=== PATIENT | male | born 1960 | race Caucasian/White ===

== ENCOUNTER 2016-10-28 05:49 | Emergency (ER) | payer MEDICARE ==
[~2016-10-28] VITALS: Ht 180.3 cm; Wt 91.0 kg
[~2016-10-28 05:49] MED LIST: GABA300C10 PO; IBUP800T PO; MIRT15TA PO; OMEP-110 PO; QUET25TA5 PO
[2016-10-28] MEDS ORDERED: METH40TA3 PO (06:01)
[2016-10-28] MEDS ORDERED: TRAZ100T15 PO (06:01)
[2016-10-28 06:43] LABS: ASPARTATE AMINO TRANSFERASE 31 U/L (15-37); BLOOD UREA NITROGEN 13 mg/dL (7-18)
[2016-10-28] MEDS ORDERED: LISI-167 PO (06:45)
[2016-10-28] MEDS ORDERED: KETOROLAC 30 MG/1 ML IM ONE (08:00)
[2016-10-28] MEDS ORDERED: KETOROLAC 30 MG/1 ML ONE (08:00)
[2016-10-28 09:20] VITALS: BP 153/88
== END 2016-10-28 09:25 | disposition home or self-care (01) ==
LOC: ED 06:10
DX: N13.2 Hydronephrosis with renal and ureteral calculous obstruction (principal); Z79.891 Long term (current) use of opiate analgesic; I10 Essential (primary) hypertension; E78.00 Pure hypercholesterolemia, unspecified; F31.9 Bipolar disorder, unspecified; F17.200 Nicotine dependence, unspecified, uncomplicated; F15.10 Other stimulant abuse, uncomplicated
CPT/HCPCS: 36415; 51702; 74176; 80053; 81001; 85025; 93005; 96372; 99285; J1885

== ENCOUNTER 2016-11-17 23:26 | Emergency (ER) | payer MEDICARE ==
[~2016-11-17] VITALS: Ht 180.3 cm; Wt 89.4 kg
[~2016-11-17 23:26] MED LIST changes: +LISI-167 PO; +METH40TA3 PO; +TRAZ100T15 PO
[2016-11-18] MEDS ORDERED: KETOROLAC 30 MG/1 ML ONE (01:59)
[2016-11-18] MEDS ORDERED: KETOROLAC 30 MG/1 ML IM ONE (02:00)
[2016-11-18] MEDS ORDERED: ALUMINUM/MAG/SIMETHICONE 30 ML UDC PO ONE (02:00)
[2016-11-18 02:44] VITALS: BP 110/52
== END 2016-11-18 02:49 | disposition home or self-care (01) ==
LOC: ED 23:59
DX: R07.89 Other chest pain (principal); I10 Essential (primary) hypertension
CPT/HCPCS: 36415; 71010; 80047; 84484; 93005; 96372; 99285; J1885

== ENCOUNTER 2017-04-02 23:45 | Inpatient (IN) | payer MEDICARE ==
[~2017-04-02] VITALS: Ht 180.3 cm; Wt 83.4 kg
[~2017-04-02 23:45] MED LIST changes: +IBUP-1223 PO; -IBUP800T PO
[2017-04-03] MEDS ORDERED: AMPICILLIN/SULBACTAM 3 GM in SODIUM CHLORIDE 0.9% 100 ML IV ONE (01:00)
[2017-04-03 01:12] LABS: HEMATOCRIT 38.6 % (39.2-51.8); HEMOGLOBIN 13.1 g/dL (13.7-18.0); WHITE BLOOD COUNT 4.6 x10^3/uL (3.4-10)
[2017-04-03 01:19] LABS: BLOOD UREA NITROGEN 7 mg/dL (7-18)
[2017-04-03] MEDS ORDERED: POTASSIUM CHLORIDE 20 MEQ TAB.ER.PRT PO ONE ×2 (01:30→11:30)
[2017-04-03] MEDS ORDERED: ONDANSETRON 2MG/ML, 2ML IVPush PRN (01:30)
[2017-04-03] MEDS ORDERED: hydrALAzine 20 MG/ML, 1ML IVPush PRN (01:30)
[2017-04-03] MEDS ORDERED: ACETAMINOPHEN 325 MG TABLET PO PRN (01:30)
[2017-04-03] MEDS ORDERED: VANCOMYCIN PER PHARMACY MC PRN (01:30)
[2017-04-03] MEDS: AMPICILLIN/SULBACTAM 3 GM in SODIUM CHLORIDE 0.9% 100 ML IV SCH ×4 (01:30→22:26)
[2017-04-03] MEDS ORDERED: TEMAZEPAM 15 MG CAPSULE PO PRN (01:30)
[2017-04-03 02:39] VITALS: BP 135/67
[2017-04-03] MEDS ORDERED: PHARMACOKINETIC MONITORING MC PRN (03:00)
[2017-04-03] MEDS ORDERED: VANCOMYCIN 1,600 MG in SODIUM CHLORIDE 0.9% 250 ML IV SCH (03:00)
[2017-04-03] MEDS ORDERED: PHARMACOKINETIC CONSULTATION MC ONE (03:00)
[2017-04-03] MEDS: ENOXAPARIN 40 MG/0.4 ML SQ SCH (03:01)
[2017-04-03 03:16] VITALS: BP 135/67
[2017-04-03] MEDS: VANCOMYCIN 1,600 MG in SODIUM CHLORIDE 0.9% 250 ML IV SCH ×2 (05:00→17:10)
[2017-04-03 07:56] VITALS: BP 143/70
[2017-04-03 14:30] VITALS: BP 159/85
[2017-04-03 19:45] VITALS: BP 155/84
[2017-04-03] MEDS ORDERED: IBUPROFEN 800 MG TABLET PO SCH (23:00)
[2017-04-03] MEDS: TRAZODONE 100MG TABLET PO SCH (23:00)
[2017-04-03] MEDS ORDERED: IBUPROFEN MC SCH (23:30)
[2017-04-04] MEDS ORDERED: METHADONE 10 MG TABLET PO SCH ×2 (01:30→09:00)
[2017-04-04] MEDS ORDERED: METHADONE 5 MG TABLET PO SCH ×2 (01:30→09:00)
[2017-04-04] MEDS ORDERED: METHADONE 5 MG TABLET PO ONE (01:30)
[2017-04-04] MEDS ORDERED: METHADONE 10 MG TABLET PO ONE (01:30)
[2017-04-04] MEDS ORDERED: METHADONE 40 MG TABLET.SOL PO ONE (01:30)
[2017-04-04] MEDS ORDERED: METHADONE 10 MG TABLET ONE (01:42)
[2017-04-04 01:51] VITALS: BP 155/80
[2017-04-04] MEDS: GABAPENTIN 300 MG CAPSULE PO SCH ×3 (02:27→22:01)
[2017-04-04] MEDS: ENOXAPARIN 40 MG/0.4 ML SQ SCH (02:28)
[2017-04-04 05:06] LABS: HEMATOCRIT 40.3 % (39.2-51.8); HEMOGLOBIN 13.8 g/dL (13.7-18.0); WHITE BLOOD COUNT 4.7 x10^3/uL (3.4-10)
[2017-04-04 05:20] LABS: BLOOD UREA NITROGEN 9 mg/dL (7-18)
[2017-04-04] MEDS: VANCOMYCIN 1,600 MG in SODIUM CHLORIDE 0.9% 250 ML IV SCH ×2 (05:35→17:33)
[2017-04-04 07:25] VITALS: BP 146/79
[2017-04-04] MEDS: AMPICILLIN/SULBACTAM 3 GM in SODIUM CHLORIDE 0.9% 100 ML IV SCH ×3 (07:29→20:12)
[2017-04-04] MEDS ORDERED: METHADONE 40 MG TABLET.SOL PO SCH (09:00)
[2017-04-04] MEDS: LISINOPRIL 20 MG TABLET PO SCH (09:19)
[2017-04-04] MEDS: QUETIAPINE 25MG TABLET PO SCH (09:20)
[2017-04-04] MEDS: OMEPRAZOLE 20 MG CAPSULE.DR PO SCH (09:20)
[2017-04-04 13:05] VITALS: BP 157/81
[2017-04-04 19:40] VITALS: BP 136/74
[2017-04-04] MEDS: TRAZODONE 100MG TABLET PO SCH (21:00)
[2017-04-05] MEDS: ENOXAPARIN 40 MG/0.4 ML SQ SCH (00:46)
[2017-04-05] MEDS: AMPICILLIN/SULBACTAM 3 GM in SODIUM CHLORIDE 0.9% 100 ML IV SCH ×4 (02:22→18:04)
[2017-04-05 02:36] VITALS: BP 110/57
[2017-04-05] MEDS: VANCOMYCIN 1,600 MG in SODIUM CHLORIDE 0.9% 250 ML IV SCH ×2 (07:31→19:13)
[2017-04-05 07:53] VITALS: BP 142/65
[2017-04-05] MEDS: METHADONE 10 MG TABLET PO SCH (09:39)
[2017-04-05] MEDS: LISINOPRIL 20 MG TABLET PO SCH (09:41)
[2017-04-05] MEDS: QUETIAPINE 25MG TABLET PO SCH ×2 (09:41→21:23)
[2017-04-05] MEDS: OMEPRAZOLE 20 MG CAPSULE.DR PO SCH (09:41)
[2017-04-05] MEDS: GABAPENTIN 300 MG CAPSULE PO SCH ×2 (09:42→21:23)
[2017-04-05 14:55] VITALS: BP 115/69
[2017-04-05 20:14] VITALS: BP 142/73
[2017-04-05] MEDS: TRAZODONE 100MG TABLET PO SCH (21:00)
[2017-04-06] MEDS: AMPICILLIN/SULBACTAM 3 GM in SODIUM CHLORIDE 0.9% 100 ML IV SCH ×4 (00:38→18:27)
[2017-04-06] MEDS: ENOXAPARIN 40 MG/0.4 ML SQ SCH (00:38)
[2017-04-06] MEDS: IBUPROFEN 200 MG TABLET PO PRN (01:10)
[2017-04-06 03:14] VITALS: BP 137/71
[2017-04-06] MEDS: VANCOMYCIN 1,600 MG in SODIUM CHLORIDE 0.9% 250 ML IV SCH ×2 (06:36→19:54)
[2017-04-06 07:45] VITALS: BP 127/68
[2017-04-06] MEDS: METHADONE 10 MG TABLET PO SCH (08:58)
[2017-04-06] MEDS: OMEPRAZOLE 20 MG CAPSULE.DR PO SCH (08:59)
[2017-04-06] MEDS: LISINOPRIL 20 MG TABLET PO SCH (08:59)
[2017-04-06] MEDS: GABAPENTIN 300 MG CAPSULE PO SCH ×2 (08:59→19:58)
[2017-04-06 13:50] VITALS: BP 119/72
[2017-04-06] MEDS: QUETIAPINE 25MG TABLET PO SCH (19:57)
[2017-04-06] MEDS: TRAZODONE 100MG TABLET PO SCH (19:58)
[2017-04-06 20:05] VITALS: BP 136/72
[2017-04-07] MEDS: AMPICILLIN/SULBACTAM 3 GM in SODIUM CHLORIDE 0.9% 100 ML IV SCH ×5 (00:25→23:36)
[2017-04-07] MEDS: IBUPROFEN 200 MG TABLET PO PRN (00:25)
[2017-04-07] MEDS: ENOXAPARIN 40 MG/0.4 ML SQ SCH ×2 (00:30→23:38)
[2017-04-07 03:00] VITALS: BP 134/70
[2017-04-07] MEDS: VANCOMYCIN 1,600 MG in SODIUM CHLORIDE 0.9% 250 ML IV SCH ×2 (08:00→20:57)
[2017-04-07] MEDS: GABAPENTIN 300 MG CAPSULE PO SCH ×2 (09:21→20:57)
[2017-04-07] MEDS: METHADONE 10 MG TABLET PO SCH (09:21)
[2017-04-07] MEDS: LISINOPRIL 20 MG TABLET PO SCH (09:21)
[2017-04-07] MEDS: OMEPRAZOLE 20 MG CAPSULE.DR PO SCH (09:21)
[2017-04-07 10:40] VITALS: BP 140/75
[2017-04-07] MEDS ORDERED: VANC1VIA3 IV (11:55)
[2017-04-07] MEDS ORDERED: AMPI3VIA IV (11:55)
[2017-04-07 15:59] VITALS: BP 135/69
[2017-04-07] MEDS: QUETIAPINE 25MG TABLET PO SCH (20:58)
[2017-04-07] MEDS: TRAZODONE 100MG TABLET PO SCH (20:59)
[2017-04-07 22:11] VITALS: BP 115/63
[2017-04-08 00:58] VITALS: BP 129/77
[2017-04-08] MEDS: AMPICILLIN/SULBACTAM 3 GM in SODIUM CHLORIDE 0.9% 100 ML IV SCH (05:58)
[2017-04-08 07:19] VITALS: BP 123/63
[2017-04-08] MEDS: VANCOMYCIN 1,600 MG in SODIUM CHLORIDE 0.9% 250 ML IV SCH (08:00)
[2017-04-08] MEDS: GABAPENTIN 300 MG CAPSULE PO SCH (10:00)
[2017-04-08] MEDS: LISINOPRIL 20 MG TABLET PO SCH (10:00)
[2017-04-08] MEDS: OMEPRAZOLE 20 MG CAPSULE.DR PO SCH (10:00)
[2017-04-08] MEDS: METHADONE 10 MG TABLET PO SCH (10:00)
[2017-04-08 10:03] VITALS: BP 137/80
== END 2017-04-08 10:14 | DRG 539 ==
LOC: ED 04-03 00:53 → EDIP 04-03 00:58 → SUATTDRO 04-03 01:13 → 4NOR 04-03 02:15
PROVIDERS: ADMIT Internal Medicine; ATTEND Internal Medicine
PROC: 02HV33Z Insertion of Infusion Device into Superior Vena Cava, Percutaneous Approach (ICD-10-PCS; principal; 2017-04-07)
PROC: B5181ZA Fluoroscopy of Superior Vena Cava using Low Osmolar Contrast, Guidance (ICD-10-PCS; 2017-04-07)
DX: M86.142 Other acute osteomyelitis, left hand (principal); E43 Unspecified severe protein-calorie malnutrition; L03.114 Cellulitis of left upper limb; E87.1 Hypo-osmolality and hyponatremia; E83.51 Hypocalcemia; E87.6 Hypokalemia; F17.210 Nicotine dependence, cigarettes, uncomplicated; F31.9 Bipolar disorder, unspecified; G89.29 Other chronic pain; I10 Essential (primary) hypertension; L03.012 Cellulitis of left finger; Z68.25 Body mass index [BMI] 25.0-25.9, adult; Z59.0 Homelessness; Z87.442 Personal history of urinary calculi
CPT/HCPCS: 36415; 36569; 76937; 77001; 80048; 80202; 82040; 83735; 84100; 85025; 99285; J0295; J1650; J3370; C1751; J7050

== ENCOUNTER 2018-02-16 19:34 | Emergency (ER) | payer MEDICARE ==
[~2018-02-16 19:34] MED LIST changes: +AMPI3VIA IV; +VANC1VIA3 IV
[2018-02-16] MEDS ORDERED: SULFAMETH./TRIMETHOPRIM DS 800MG/160MG TABLET PO ONE (20:00)
[2018-02-16] MEDS ORDERED: CEPHALEXIN 500 MG CAPSULE PO SCH (20:00)
[2018-02-16] MEDS ORDERED: SULFAMETH./TRIMETHOPRIM DS 800MG/160MG TABLET ONE (20:41)
[2018-02-16] MEDS ORDERED: CEPHALEXIN 500 MG CAPSULE ONE (20:42)
[2018-02-16 22:32] VITALS: BP 118/64
== END 2018-02-16 22:34 | disposition home or self-care (01) ==
LOC: ED 22:30
DX: L02.511 Cutaneous abscess of right hand (principal); L03.011 Cellulitis of right finger; I10 Essential (primary) hypertension; E78.00 Pure hypercholesterolemia, unspecified; Z88.8 Allergy status to other drugs, medicaments and biological substances
CPT/HCPCS: 11740; 99283

== ENCOUNTER 2020-07-31 18:42 | Emergency (ER) | payer MEDICARE, OTHER ==
[~2020-07-31] VITALS: Ht 180.3 cm; Wt 110.3 kg
[~2020-07-31 18:42] MED LIST changes: +MIRT-37 PO; -MIRT15TA PO; +TRAZ-175 PO; -TRAZ100T15 PO
--- NOTE | 2020-07-31 19:18 | NUR ---
ERP WAS IN TO SEE PT. POC RV'WD. SAME TRIAGE NOTE. SWELLING TO BILAT HANDS, LOWER LEGS, AND FEET. PT REPORTS HE HAS BEEN DRINKING A COUPLE PINTS A DAY, SMOKING A PACK A DAY, AND STILL USING HEROIN OCCASIONALLY.
[2020-07-31 19:48] LABS: ALBUMIN 3.2 g/dL (3.4-5.0); ANION GAP 3 mmol/L (5-15); CALCIUM 8.2 mg/dL (8.5-10.1); CHLORIDE 105 mmol/L (98-107)
[2020-07-31 19:54] LABS: ALANINE AMINOTRANSFERASE 71 U/L (12-78); ALKALINE PHOSPHATASE 78 U/L (45-117); BILIRUBIN,TOTAL 0.4 mg/dL (0.2-1.0); CREATININE 0.88 mg/dL (0.7-1.3); TROPONIN I < 0.015 ng/mL (0.000-0.045)
[2020-07-31 20:46] LABS: BASOPHILS % (AUTO) 0 % (0-1); EOSINOPHILS % (AUTO) 2 % (1-7); LYMPHOCYTES % (AUTO) 17 % (22-44); MEAN CORPUSCULAR HEMOGLOBIN 30.2 pg (27.5-34.5); MEAN CORPUSCULAR HGB CONC 34.7 g/dL (33.2-36.2); MEAN PLATELET VOLUME 7.6 fL (7.4-10.4); MONOCYTES % (AUTO) 8 % (2-9); NEUTROPHILS % (AUTO) 73 % (42-75); PLATELET COUNT 202 x10^3/uL (130-400); RED BLOOD COUNT 4.56 x10^6/uL (4.38-5.82); RED CELL DISTRIBUTION WIDTH 15.3 % (9.4-14.8)
[2020-07-31 20:48] LABS: MD NO
--- NOTE | 2020-07-31 20:55 | NUR ---
PT RESTING IN GURNEY, BREATHING WNL, NO S/S OF DISTRESS. LABS REDRAWN, STILL PENDING. REPORTED TO PAULA DIETRICH.
[2020-07-31] MEDS ORDERED: FUROSEMIDE 40 MG/4 ML ONE (21:19)
[2020-07-31] MEDS ORDERED: FUROSEMIDE 40 MG TABLET ONE (21:24)
[2020-07-31 21:26] VITALS: BP 139/56
[2020-07-31] MEDS ORDERED: FUROSEMIDE 10 MG/ML ORAL SOL PO ONE (21:30)
== END 2020-07-31 21:55 | disposition home or self-care (01) ==
LOC: ED 19:59
DX: R60.0 Localized edema (principal); I10 Essential (primary) hypertension; E78.00 Pure hypercholesterolemia, unspecified; F17.210 Nicotine dependence, cigarettes, uncomplicated
CPT/HCPCS: 36415; 80053; 83880; 84484; 85025; 99283; 99406